=== PATIENT | male | born 1990 | race African-American/Black ===

== ENCOUNTER 2016-12-29 05:08 | Inpatient (IN) | payer MEDICAID ==
[~2016-12-29] VITALS: Ht 165.1 cm; Wt 70.3 kg
[2016-12-29] MEDS ORDERED: IV NS 0.9% 1,000 ML BAG IV ONE ×2 (05:30→08:30)
[2016-12-29] MEDS ORDERED: IV NS 0.9% 1,000 ML ONE ×2 (05:32→08:30)
[2016-12-29] MEDS ORDERED: IV SET PRIMARY 1 EA INFUS.SET MC ONE ×2 (05:32→08:30)
[2016-12-29 05:53] LABS: BASOPHILS % (AUTO) 0.2 % (0.0-2.0); DIFF TOTAL % 100 %; EOSINOPHILS # (AUTO) 0.1 /CMM (0.0-0.7); EOSINOPHILS % (AUTO) 0.6 % (0.0-6.0); HEMATOCRIT 37 % (39-51); HEMOGLOBIN 12.3 g/dL (13.5-17.5); LYMPHOCYTES # (AUTO) 2.5 /CMM (0.8-4.8); LYMPHOCYTES % (AUTO) 12.9 % (20.0-44.0); MEAN CORPUSCULAR HEMOGLOBIN 31 PG (26.0-33.0); MEAN CORPUSCULAR HGB CONC 33 g/dl (31.0-36.0); MEAN CORPUSCULAR VOLUME 94 fL (80-96); MONOCYTES # (AUTO) 1.1 /CMM (0.1-1.30); MONOCYTES % (AUTO) 5.5 % (2.0-12.0); NEUTROPHILS # (AUTO) 15.6 /CMM (1.8-8.9); NEUTROPHILS % (AUTO) 80.8 % (43.0-81.0); PLATELET COUNT (AUTO) 267 /CMM (150-450); RED BLOOD CELL COUNT(AUTO) 3.94 MIL/uL (4.5-6.0); WHITE BLOOD COUNT (AUTO) 19.3 K/uL (4.3-11.0)
[2016-12-29 05:58] LABS: CALCIUM, SERUM 8.4 mg/dL (8.5-10.1); CREATININE 1.7 mg/dL (0.6-1.3); POTASSIUM 3.8 mmol/L (3.5-5.1)
[2016-12-29 06:04] LABS: ALBUMIN 3.8 g/dL (3.4-5.0); BILIRUBIN,TOTAL 0.2 mg/dL (0.2-1.0); INDIRECT BILIRUBIN 0.2 mg/dL (0.0-1.1); TOTAL PROTEIN, SERUM 7.7 g/dL (6.4-8.2)
[2016-12-29 06:13] LABS: TROPONIN I < 0.017 ng/mL (0.00-0.056)
[2016-12-29 06:31] LABS: INR 1.01 (0.87-1.13); PROTHROMBIN TIME 10.9 SECS (9.5-12.7)
[2016-12-29] MEDS ORDERED: STRIBILD PO (07:54)
[2016-12-29] MEDS ORDERED: PANTOPRAZOLE 40 MG VIAL ONE (07:59)
[2016-12-29] MEDS ORDERED: IV SET PRIMARY PUMP SET 1 EA INFUS.SET MC ONE ×2 (07:59→20:16)
[2016-12-29] MEDS ORDERED: PANTOPRAZOLE 80 MG in IV NS 0.9% 500 ML IV PRN (08:00)
[2016-12-29] MEDS ORDERED: PANTOPRAZOLE 80 MG in IV NS 0.9% 500 ML IV ONE (08:00)
[2016-12-29] MEDS ORDERED: ONDANSETRON HCL/PF 4 MG/2 ML VIAL IVP PRN (16:00)
[2016-12-29] MEDS ORDERED: ACETAMINOPHEN 325 MG TABLET PO PRN (16:00)
[2016-12-29] MEDS ORDERED: ZOLPIDEM TARTRATE 5 MG TABLET PO PRN (16:00)
[2016-12-29] MEDS ORDERED: MAGNESIUM HYDROXIDE 30 ML UDC PO PRN (16:00)
[2016-12-29] MEDS ORDERED: MAG HYDROX/AL HYDROX/SIMETH 30 ML UDC PO PRN (16:00)
[2016-12-29] MEDS ORDERED: HYDROCODONE/APAP 5/325MG 1 EACH TABLET PO PRN (16:30)
[2016-12-29] MEDS ORDERED: Z GUARD REMEDY 2 OZ OINT TP PRN (16:30)
[2016-12-29 20:00] VITALS: BP 110/56
[2016-12-29] MEDS: IV NS 0.9% 1,000 ML IV PRN (20:25)
[2016-12-30] VITALS: BP 94/52
[2016-12-30] MEDS: IV NS 0.9% 1,000 ML IV PRN ×2 (03:38→12:11)
[2016-12-30 04:00] VITALS: BP 99/52
[2016-12-30 07:00] VITALS: BP 99/50
[2016-12-30 07:09] LABS: BASOPHILS % (AUTO) 0.4 % (0.0-2.0); DIFF TOTAL % 100 %; EOSINOPHILS # (AUTO) 0.3 /CMM (0.0-0.7); HEMATOCRIT 26 % (39-51); LYMPHOCYTES # (AUTO) 2.3 /CMM (0.8-4.8); LYMPHOCYTES % (AUTO) 25.9 % (20.0-44.0); MEAN CORPUSCULAR HEMOGLOBIN 33 PG (26.0-33.0); MEAN CORPUSCULAR HGB CONC 34 g/dl (31.0-36.0); MEAN CORPUSCULAR VOLUME 95 fL (80-96); MONOCYTES # (AUTO) 0.6 /CMM (0.1-1.30); MONOCYTES % (AUTO) 7.2 % (2.0-12.0); NEUTROPHILS # (AUTO) 5.6 /CMM (1.8-8.9); NEUTROPHILS % (AUTO) 63.5 % (43.0-81.0); PLATELET COUNT (AUTO) 185 /CMM (150-450); RED BLOOD CELL COUNT(AUTO) 2.77 MIL/uL (4.5-6.0); WHITE BLOOD COUNT (AUTO) 8.8 K/uL (4.3-11.0)
[2016-12-30 07:26] LABS: CREATININE 1.4 mg/dL (0.6-1.3); PHOSPHORUS 3.7 mg/dL (2.5-4.9); POTASSIUM 3.7 mmol/L (3.5-5.1)
[2016-12-30 08:00] VITALS: BP 99/50
[2016-12-30 16:00] VITALS: BP 102/54
[2016-12-30] MEDS ORDERED: LORAZEPAM INJ 2 MG/ML VIAL IV PRN (17:30)
[2016-12-30] MEDS ORDERED: STRIBILD PO SCH (22:00)
[2016-12-31 07:48] LABS: *NEUTROPHILS, ABSOLUTE 5.4 x10E3/uL (1.4-7.0)
== END 2016-12-30 20:50 | disposition left against medical advice (07) | DRG 253 ==
LOC: ER 05:09 → MED 16:38 → TELE 20:58 → MED 12-30 08:38
PROVIDERS: ADMIT Family Medicine; ATTEND Family Medicine
DX: K92.2 Gastrointestinal hemorrhage, unspecified (principal); N17.0 Acute kidney failure with tubular necrosis; D64.9 Anemia, unspecified; D72.829 Elevated white blood cell count, unspecified; R73.9 Hyperglycemia, unspecified; F17.210 Nicotine dependence, cigarettes, uncomplicated; F14.10 Cocaine abuse, uncomplicated
CPT/HCPCS: 36415; 71010-TC; 80048-TC; 80061-TC; 80076-TC; 83690-TC; 83735-TC; 84100-TC; 84484-TC; 85025-TC; 85730-TC; 86360; 86850-TC; 87081-TC; A4606; C9113; G0480; J7030; J7040; Z7610